=== PATIENT | male | born 1930 | race Caucasian/White ===

== ENCOUNTER 2018-02-20 12:27 | Inpatient (IN) | payer OTHER ==
[~2018-02-20] VITALS: Ht 162.6 cm; Wt 61.2 kg
--- NOTE | ~2018-02-20 | HC ---
[facility] [place] [address] CONSULTATION Name: LUIS KINSEY Room #: 352-P ADM IN M.R.#: [id number] Admission: 02/20/18 Attend Phys: Dilia Stacy Discharge: Date of : 31 Report #: [id number] THIS REPORT FOR: //name// CC: Celio Ralph DATE OF SERVICE: 02/21/2018 REFERRAL PHYSICIAN: Dr. Fajardo. REASON FOR REFERRAL: Acute on chronic respiratory failure, mucus plugging. HISTORY OF PRESENT ILLNESS: The patient is an 87-year-old male who was brought to the Emergency Room due to dyspnea. A chest x-ray shows atelectasis involving the right lower lobe. A pulmonary consultation was requested. The patient is known to this physician. He was recently hospitalized in 05/2017 for respiratory failure. He has a complicated medical history. The patient was diagnosed with Guillain-[place] syndrome in 02/2017. He had lived in [place]. He was hospitalized there and subsequently had a complicated hospital course requiring intubation and subsequently tracheostomy. He was then sent to rehabilitation. Most recently, he has been at [facility] for ongoing care. The patient was doing fairly well. In fact, he was successfully weaned off the mechanical ventilation, placed on a trach shield. He was doing well until a few days prior to presentation, he started to notice increasing dyspnea, secretion and need for suctioning. The patient underwent bronchoscopy while at [facility] prior to this. As mentioned above, chest x-ray shows moderate right lower lobe atelectasis. Currently, appears somewhat dyspneic, tachypneic. Otherwise, in mild distress. 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 difficile colitis. PAST SURGICAL HISTORY: Status post bilateral knee replacement. ALLERGIES: None. MEDICATIONS: List reviewed. This includes aspirin, famotidine, nebulized albuterol, MiraLax, nebulized ipratropium, insulin supplements, Lovenox. He is also on Coreg. [facility] [address] [place] [address] CONSULTATION Name: LUIS KINSEY Room #: 352-P ADM IN M.R.#: [id number] Admission: 02/20/18 Attend Phys: Dilia Stacy Discharge: Date of : 31 Report #: [id number] FAMILY HISTORY: Noncontributory. SOCIAL HISTORY: As mentioned above. Currently, had been at [facility] facility. The patient is retired. Has six children. He has never smoked. He drank rarely in the past. REVIEW OF SYSTEMS: As mentioned above. Notable for progressive weakness due to his Guillain-[place]amping [place]. Otherwise, 10-point systems negative. PHYSICAL EXAMINATION: GENERAL: He is awake, alert, appears mildly dyspneic. VITAL SIGNS: Temperature is 98.4 degrees Fahrenheit, pulse 85, respiratory rate is 20, blood pressure is 120/57 mmHg and saturation 96%. HEENT: Normocephalic, atraumatic. NECK: Status post tracheostomy. CHEST: Breath sounds are decreased in the right lung field, few scattered crackles in the left lung field. No wheezes. CARDIOVASCULAR: Normal S1, S2. There are no murmurs or gallop. There is no JVD. There is no carotid bruit. Pulses are 2+/4+ bilaterally. ABDOMEN: Soft, nontender, no organomegaly or masses felt. GENITOURINARY: Deferred. RECTAL: Deferred. EXTREMITIES: There is no edema, cyanosis or clubbing. MUSCULOSKELETAL: Notable for marked muscle atrophy involving both upper and lower extremities. LABORATORY DATA: Chest x-ray as mentioned above. Electrolytes: Sodium 132, potassium 4.1, chloride 92, CO2 is 35, BUN is 47, creatinine 0.9. WBC 8600, hemoglobin is 10.9, platelets are normal. IMPRESSION: 1. Right lower lobe atelectasis, likely due to mucus plugging. 2. Acute on chronic hypoxic respiratory failure with hypercapnia. 3. Guillain-[place] initially diagnosed in 2017 with progressive weakness, muscle atrophy, now with functional quadriplegia, status post tracheostomy, PEG tube. 4. Diabetes mellitus type 2. 5. Hypertension. 6. History of chronic kidney disease, the creatinine has improved. RECOMMENDATION: We will proceed with a diagnostic and therapeutic bronchoscopy later today. Wean O2 for saturation 90%. Bronchodilators will be recommended. DVT and GI prophylaxis will be addressed. I think broad-spectrum antibiotics may be indicated due to possibility of nosocomial infections. [facility] [address] [place] [address] CONSULTATION Name: LUIS KINSEY Room #: 352-P ADM IN M.R.#: [id number] Admission: 02/20/18 Attend Phys: Dilia Stacy Discharge: Date of : 31 Report #: [id number] Thank you for this consultation. <ELECTRONICALLY SIGNED> By: Heladio Queen MD 02/22/18 1935 1819 [id number] Heladio Queen MD /nt
--- NOTE | ~2018-02-20 | H ---
[facility] [place] [address] [place] [address] HISTORY AND PHYSICAL Name: LUIS KINSEY Room #: 355-P ADM IN M.R.#: [id number] Admission: 02/20/18 Attend Phys: Dilia Satcy Discharge: Date of : 31 Report #: [id number] THIS REPORT FOR: //name// CC: Celio Ralph DATE OF SERVICE: 02/20/2018 CHIEF COMPLAINT: Shortness of breath. 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 He has been chronically ventilated for over a year and had been living in the long-term care setting at [facility]. About a month ago, he was transferred up to the LTAC unit at [facility] and successfully weaned from the ventilator to trach shield. However, he is having difficulty clearing secretions and has had mucus plugging and the need for several bronchoscopies in the last few weeks since being converted to trach shield. He had evaluation yesterday and the facility felt he may have recurrent mucus plug and/or signs of pleural effusion and was admitted for pulmonary evaluation and possible therapeutic bronchoscopy. 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 He has been chronically ventilated for approximately a year, but recently weaned to trach shield. Diabetes type 2, hypertension. There is questionable history of DVT, I do not have any specific details. Chronic kidney disease, history of C. diff. PAST SURGICAL HISTORY: He has had bilateral knee replacements. FAMILY HISTORY: Noncontributory. SOCIAL HISTORY: Has been living in a long-term care setting for a year, no known chronic alcohol or tobacco use. ALLERGIES: None. MEDICATIONS: Aspirin, Pepcid, MiraLax, Atrovent, NovoLog, Lovenox. REVIEW OF SYSTEMS: He is alert. He nods yes or no, but really could not follow a review. OBJECTIVE: VITAL SIGNS: Temperature 36.4, pulse 84, respirations 16, blood pressure 103/57, O2 sat 100% on trach shield. GENERAL: As mentioned, he is awake and alert. [facility] [address] [place] [address] HISTORY AND PHYSICAL Name: LUIS KINSEY Room #: 355-P [facility] IN .R.#: [id number] Admission: 02/20/18 Attend Phys: Dilia Stacy Discharge: Date of : 31 Report #: [id number] HEAD AND NECK: Show a tracheostomy in place with trach shield. LUNGS: Clear anteriorly. HEART: Regular. ABDOMEN: Soft, normoactive bowel sounds, PEG tube. EXTREMITIES: No edema. NEUROLOGIC: Global strength 2/5 throughout. LABORATORY DATA: White count was 8.6. Chemistry is fairly unremarkable. Chest x-ray shows a right pleural effusion and basilar atelectasis. ASSESSMENT: 1. Chronic hypercapnic respiratory failure. 2. Guillain-Nevis syndrome. 3. Tracheostomy dependent. 4. Right pleural effusion. 5. Mucus plugs. 6. Diabetes type 2. 7. Anemia of chronic disease. 8. Quadriparesis. PLAN: Continue his usual medications and have Dr. Queen assess him for the need for therapeutic bronchoscopy and/or thoracentesis. <ELECTRONICALLY SIGNED> By: Ladarius Fajardo MD 02/22/18917 0930 1003 Ladarius Fajardo MD /nt
--- NOTE | ~2018-02-20 | O ---
[facility] [place] [address] OPERATIVE REPORT Name: LUIS KINSEY Room #: 352-P ADM IN M.R.#: [id number] Admission: 02/20/18 Attend Phys: Dilia Stacy Discharge: Date of : 31 Report #: [id number] THIS REPORT FOR: //name// CC: Celio Ralph DATE OF SERVICE: 02/21/2018 PROCEDURE: Diagnostic and therapeutic bronchoscopy. CLINICAL HISTORY: An 87-year-old male with [id number]-gw-ephkhtn respiratory failure, chest x-ray is showing right lower lobe atelectasis. Mucus plugging is suspected. PREOPERATIVE DIAGNOSIS: Mucus plugging involving the right main stem bronchus, part of the left lower lobe. POSTOPERATIVE DIAGNOSIS: Mucus plugging involving the right main stem bronchus, part of the left lower lobe. DESCRIPTION OF PROCEDURE: Following obtained consent, risks and benefits have been explained to the patient's family, which include infection, bleeding, pneumothorax, procedure performed in the patient's room. He was not given any sedation. The patient has a previously placed tracheostomy. 1% lidocaine was used for local anesthetic. Then, a flexible, disposable, fiberoptic bronchoscope was then introduced through the #8 Shiley tracheostomy. Distal trachea was unremarkable. Jessica was normal. The proximal right main stem bronchus was occluded with clear whitish secretions. Moderate mucus plugging was also noted in the right lower lobe. The right upper lobe and right middle lobe was grossly unremarkable. Left main stem bronchus was normal. Left upper lobe was normal. Part of the left lower lobe shows mild mucus plugging. Following suctioning and washing, the airways were examined. All airways appeared patent and open. Mucosa was normal. No endobronchial lesion seen. Secretions again were clear. The patient tolerated the procedure well with no complications. Bronchial wash will be sent for microbiology studies including Gram stain, culture sensitivity, fungal smear and culture and AFB smear. <ELECTRONICALLY SIGNED> By: Heladio Queen MD 02/22/18 1935 1825 1843 Heladio Queen MD /nt
--- NOTE | ~2018-02-20 | D ---
[facility] [place] [address] [place] [address] DISCHARGE SUMMARY Name: LUIS KINSEY Room #: 352-P [facility] IN M.R.#: [id number] Admission: 02/20/18 Attend Phys: Dilia Stacy Discharge: 03/03/18 Date of : 31 Report #: [id number] THIS REPORT FOR: //name// CC: Celio Ralph FINAL DIAGNOSES: 1. Healthcare-associated pneumonia of the right lower lobe. 2. Pseudomonas aeruginosa pulmonary infection. 3. Mucus plugging of the right lower lobe. 4. Right pneumothorax. 5. Chronic hypoxic hypercapnic respiratory failure. 6. Guillain-[place] syndrome. 7. Quadriparesis. 8. Diabetes type 2. 9. Anemia of chronic disease. PROCEDURES: 1. Bronchoscopy. 2. Chest tube placement on the right. 3. Mechanical ventilation. HOSPITAL COURSE: The patient was admitted from a fpc unit with respiratory issues with thick mucus, some mild hypoxia and respiratory failure. He was seen by the Pulmonary service and plan for bronchoscopy. He had thick mucus and secretions suctioned from the right lower lobe due to mucous plugging. Cultures were obtained, which eventually grew Pseudomonas and beta strep group G. ID service followed him and placed him on appropriate antibiotics. Because of the pulmonary findings in the right lower lobe, Dr. Queen placed him back on mechanical ventilation in hopes of positive pressure ventilation with atelectasis and the mucus plugging in the right lower lobe. Unfortunately, he developed a pneumothorax to the right upper lobe and IR placed a chest tube. He remained on the ventilator the rest of his hospital stay with other supportive measures including his usual medicine, tube feeding and antibiotics. Ultimately, the air leak resolved and the pneumothorax resolved. Chest tube was removed and the following morning of the day of discharge, chest x-ray showed reinflation of the right upper lobe with no recurrent pneumothorax. DISPOSITION: He is being transferred to [facility] facility under the care of Dr. Ralph for continued IV antibiotics, respiratory treatment and ventilator weaning. I have signed his transfer medications orders and our service will follow him there. By: 1551 1851 Ladarius Fajardo MD /nt
[2018-02-20 12:27] VITALS: BP 127/71
[~2018-02-20 12:27] MED LIST: ACETAMINOPHEN325 M1 PO; ALBUTEROL2.5 MG/0.5 INH; ALBUTEROL2.5 MG/31 INH; ARTIFICIAL TEAR15 M1 OPHTHALMIC; CARVEDILOL3.125 MG PO; CELEXA10 MG PO; CHILDREN'S ASPI81 MG PO; DESENEX TOP; ENOXAPARIN40 MG/0.1 SUBQ; FAMOTIDINE 20 M20 MG PO; FLAGYL500 MG PO; LEVEMIR SUBQ; MELATONIN3 MG PO; MIRALAX17 GM PO; NEURONTIN250 MG/5 M PER TUBE; NITROGLYCERIN0.4 MG SUBLING; NOVOLOG100 UNIT/1 SUBQ; ONDANSETRON ODT4 MG PO; OXYCONTIN10 M1 PO; REGLAN 10 MG TA10 MG PO; SALINE MIST44 ML NASAL; SENNA8.6 MG PO; VITAMIN D2000 UNIT PO
[2018-02-20] MEDS ORDERED: IPRATROPIU0.2 MG/1 M INH (12:36)
[2018-02-20] MEDS ORDERED: ENOXAPARIN100 MG/11 SUBQ (12:37)
[2018-02-20] MEDS ORDERED: NOVOLOG100 UNIT/1 SUBQ (12:37)
[2018-02-20 12:57] LABS: HEMATOCRIT 31.6 % (42.0-52.0); HEMOGLOBIN 10.9 gm/dL (14.0-18.0); MCH 29.7 pg (26.0-34.0); MCHC 34.4 g/dL (28.0-37.0); MCV 86.4 fL (80.0-100.0); PLATELET COUNT 221 thou/uL (150-400); RBC 3.66 mil/uL (4.50-6.00); RDW 15.7 % (10.5-14.5); WBC 8.6 thou/uL (4.0-11.0)
[2018-02-20 13:02] LABS: CALCIUM 9.8 mg/dL (8.5-10.1); CREATININE 0.9 mg/dL (0.7-1.3); POTASSIUM 4.1 mmol/L (3.5-5.1)
[2018-02-20 13:09] LABS: APTT 30.6 Seconds (24.5-32.8); PROTIME 10.4 Seconds (9.3-11.4)
[2018-02-20 13:18] LABS: ABSOLUTE NEUTROPHILS 5.7 thou/uL (1.4-8.2); PLATELET ESTIMATE NORMAL
[2018-02-20 15:57] VITALS: BP 118/61
[2018-02-20 16:23] VITALS: BP 108/62
[2018-02-20 17:45] VITALS: BP 111/70
[2018-02-20 20:27] VITALS: BP 133/78
[2018-02-21] VITALS (7 sets, daily range): BP systolic 97–129; BP diastolic 55–63
[2018-02-22 03:59] VITALS: BP 140/72
[2018-02-22 05:52] LABS: HEMATOCRIT 32.5 % (42.0-52.0); HEMOGLOBIN 10.9 gm/dL (14.0-18.0); MCHC 33.5 g/dL (28.0-37.0); MCV 86.8 fL (80.0-100.0); RBC 3.74 mil/uL (4.50-6.00); RDW 15.7 % (10.5-14.5); WBC 5.6 thou/uL (4.0-11.0)
[2018-02-22 06:07] LABS: CALCIUM 9.6 mg/dL (8.5-10.1); CREATININE 0.8 mg/dL (0.7-1.3); POTASSIUM 3.7 mmol/L (3.5-5.1)
[2018-02-22 08:05] VITALS: BP 134/61
[2018-02-22 11:50] VITALS: BP 120/59
[2018-02-22 16:07] LABS: BE(vivo) 5.3 mmol/L (-2 to +3); HCO3 29.5 mmol/L (22.0-26.0); PCO2 41.8 mmHg (35.0-45.0); PO2 75.6 mmHg (80.0-100.0); pH 7.466 (7.360-7.450); sO2 95.8 % (92.0-98.0)
[2018-02-22 16:43] VITALS: BP 110/65
[2018-02-22 19:25] VITALS: BP 122/60
[2018-02-23] VITALS (7 sets, daily range): BP systolic 89–130; BP diastolic 47–68
[2018-02-23 05:23] LABS: HEMATOCRIT 30.4 % (42.0-52.0); HEMOGLOBIN 10.3 gm/dL (14.0-18.0); MCH 29.2 pg (26.0-34.0); MCHC 33.8 g/dL (28.0-37.0); MCV 86.2 fL (80.0-100.0); RBC 3.53 mil/uL (4.50-6.00); RDW 16.2 % (10.5-14.5); WBC 9.3 thou/uL (4.0-11.0)
[2018-02-23 05:36] LABS: CALCIUM 9.5 mg/dL (8.5-10.1); CREATININE 0.8 mg/dL (0.7-1.3); POTASSIUM 3.8 mmol/L (3.5-5.1)
[2018-02-24 02:56] VITALS: BP 114/68
[2018-02-24 05:53] LABS: HEMATOCRIT 27.6 % (42.0-52.0); HEMOGLOBIN 9.3 gm/dL (14.0-18.0); MCH 28.9 pg (26.0-34.0); MCHC 33.6 g/dL (28.0-37.0); MCV 85.9 fL (80.0-100.0); RBC 3.21 mil/uL (4.50-6.00); RDW 16.7 % (10.5-14.5); WBC 5.5 thou/uL (4.0-11.0)
[2018-02-24 06:04] LABS: CALCIUM 9.1 mg/dL (8.5-10.1); POTASSIUM 4.2 mmol/L (3.5-5.1)
[2018-02-24 07:52] VITALS: BP 104/69
[2018-02-24 11:14] VITALS: BP 108/57
[2018-02-24 18:05] VITALS: BP 119/64
[2018-02-24 19:55] VITALS: BP 107/56
[2018-02-25 00:35] VITALS: BP 119/58
[2018-02-25 03:15] VITALS: BP 121/64
[2018-02-25 07:47] VITALS: BP 127/69
[2018-02-25 11:23] VITALS: BP 139/96
[2018-02-25 15:33] LABS: HEMATOCRIT 28.4 % (42.0-52.0); HEMOGLOBIN 9.7 gm/dL (14.0-18.0); MCH 29.6 pg (26.0-34.0); MCHC 34.2 g/dL (28.0-37.0); MCV 86.5 fL (80.0-100.0); RBC 3.29 mil/uL (4.50-6.00); RDW 16.5 % (10.5-14.5); WBC 13.1 thou/uL (4.0-11.0)
[2018-02-25 16:32] VITALS: BP 139/77
[2018-02-25 19:52] VITALS: BP 112/66
[2018-02-26 03:54] VITALS: BP 114/51
[2018-02-26 06:49] LABS: ABSOLUTE NEUTROPHILS 5.4 thou/uL (1.4-8.2); BASOPHILS 0.2 % (0.0-2.0); EOSINOPHILS 2.6 % (0.0-3.0); HEMATOCRIT 25.1 % (42.0-52.0); HEMOGLOBIN 8.7 gm/dL (14.0-18.0); LYMPHOCYTES 11.7 % (24.0-44.0); MCHC 34.5 g/dL (28.0-37.0); PLATELET COUNT 181 thou/uL (150-400); POLYS 75.5 % (36.0-66.0); RBC 2.89 mil/uL (4.50-6.00); RDW 16.4 % (10.5-14.5); WBC 7.2 thou/uL (4.0-11.0)
[2018-02-26 06:57] LABS: CREATININE 1.1 mg/dL (0.7-1.3); POTASSIUM 3.9 mmol/L (3.5-5.1)
[2018-02-26 08:07] VITALS: BP 100/51
[2018-02-26 11:09] VITALS: BP 101/51
[2018-02-26 16:03] VITALS: BP 113/55
[2018-02-26 19:44] VITALS: BP 121/57
[2018-02-27 03:10] VITALS: BP 125/63
[2018-02-27 08:00] VITALS: BP 103/50
[2018-02-27 11:17] VITALS: BP 110/46
[2018-02-27 15:58] VITALS: BP 116/60
[2018-02-27 19:30] VITALS: BP 113/51
[2018-02-28 04:10] VITALS: BP 110/54
[2018-02-28 08:27] VITALS: BP 136/68
[2018-02-28 12:11] VITALS: BP 101/46
[2018-02-28 15:22] VITALS: BP 109/49
[2018-02-28 20:15] VITALS: BP 117/50
[2018-03-01 03:45] VITALS: BP 120/53
[2018-03-01 05:51] LABS: CALCIUM 9.2 mg/dL (8.5-10.1); POTASSIUM 3.6 mmol/L (3.5-5.1)
[2018-03-01 05:55] LABS: HEMATOCRIT 25.8 % (42.0-52.0); HEMOGLOBIN 8.7 gm/dL (14.0-18.0); MCH 29.5 pg (26.0-34.0); MCHC 33.6 g/dL (28.0-37.0); MCV 87.7 fL (80.0-100.0); RBC 2.94 mil/uL (4.50-6.00); RDW 15.9 % (10.5-14.5); WBC 4.4 thou/uL (4.0-11.0)
[2018-03-01 08:17] VITALS: BP 130/61
[2018-03-01 11:49] VITALS: BP 134/56
[2018-03-01 19:20] VITALS: BP 126/65
[2018-03-02 03:24] VITALS: BP 113/60
[2018-03-02 08:00] VITALS: BP 118/54
[2018-03-02 12:34] VITALS: BP 171/83
[2018-03-02 15:40] VITALS: BP 133/69
[2018-03-02 20:00] VITALS: BP 113/58
[2018-03-03 06:00] VITALS: BP 139/51
[2018-03-03 06:10] LABS: HEMOGLOBIN 7.8 gm/dL (14.0-18.0); MCH 29.7 pg (26.0-34.0); MCHC 33.9 g/dL (28.0-37.0); MCV 87.4 fL (80.0-100.0); RBC 2.63 mil/uL (4.50-6.00); RDW 15.9 % (10.5-14.5); WBC 4.7 thou/uL (4.0-11.0)
[2018-03-03 06:23] LABS: CALCIUM 9.5 mg/dL (8.5-10.1); CREATININE 0.8 mg/dL (0.7-1.3); POTASSIUM 3.8 mmol/L (3.5-5.1)
[2018-03-03 08:03] VITALS: BP 121/43
[2018-03-03 10:53] VITALS: BP 115/39
[2018-03-03] MEDS ORDERED: IPRAT-ALBUT 0.5-3 ML INH (11:26)
[2018-03-03] MEDS ORDERED: MEROPENEM500 MG IV (11:26)
[2018-03-03] MEDS ORDERED: ACETYLCYST200 MG/1 M INH (11:27)
[2018-03-03] MEDS ORDERED: ONDANSETRON HCL4 M1 IV PUSH (11:27)
[2018-03-03] MEDS ORDERED: ACETAMINOPHEN325 M1 PO (11:27)
== END 2018-03-03 18:44 | DRG 207 ==
LOC: ER 12:27 → 3W 14:09 → EROBS 14:09 → 3W 17:30
PROVIDERS: Internal Medicine; Internal Medicine Geriatric Medicine; Internal Medicine Infectious Disease; Internal Medicine Pulmonary Disease; Student in an Organized Health Care Education/Training Program
PROC: 0BC68ZZ Extirpation of Matter from Right Lower Lobe Bronchus, Via Natural or Artificial Opening Endoscopic (ICD-10-PCS; principal; 2018-02-21)
PROC: 0BCB8ZZ Extirpation of Matter from Left Lower Lobe Bronchus, Via Natural or Artificial Opening Endoscopic (ICD-10-PCS; principal; 2018-02-21)
PROC: 0BC38ZZ Extirpation of Matter from Right Main Bronchus, Via Natural or Artificial Opening Endoscopic (ICD-10-PCS; principal; 2018-02-21)
PROC: 5A1955Z Respiratory Ventilation, Greater than 96 Consecutive Hours (ICD-10-PCS; 2018-02-22)
PROC: 0W9930Z Drainage of Right Pleural Cavity with Drainage Device, Percutaneous Approach (ICD-10-PCS; 2018-02-23)
PROC: 0W29X0Z Change Drainage Device in Right Pleural Cavity, External Approach (ICD-10-PCS; 2018-02-24)
DX: J96.21 Acute and chronic respiratory failure with hypoxia (principal); G82.50 Quadriplegia, unspecified; J15.1 Pneumonia due to Pseudomonas; J15.4 Pneumonia due to other streptococci; J98.11 Atelectasis; G61.0 Guillain-Barre syndrome; T17.590A Other foreign object in bronchus causing asphyxiation, initial encounter; J90 Pleural effusion, not elsewhere classified; J93.83 Other pneumothorax; J96.22 Acute and chronic respiratory failure with hypercapnia; N18.9 Chronic kidney disease, unspecified; Z96.653 Presence of artificial knee joint, bilateral; I12.9 Hypertensive chronic kidney disease with stage 1 through stage 4 chronic kidney disease, or unspecified chronic kidney disease; E11.22 Type 2 diabetes mellitus with diabetic chronic kidney disease; D63.8 Anemia in other chronic diseases classified elsewhere; X58.XXXA Exposure to other specified factors, initial encounter; Y93.89 Activity, other specified; Y92.89 Other specified places as the place of occurrence of the external cause; Y99.8 Other external cause status; Z93.0 Tracheostomy status; Z86.718 Personal history of other venous thrombosis and embolism; Z79.4 Long term (current) use of insulin; Z79.82 Long term (current) use of aspirin; Z79.899 Other long term (current) drug therapy
CPT/HCPCS: 10879

== ENCOUNTER 2018-05-12 16:24 | Emergency (ER) | payer OTHER ==
[~2018-05-12] VITALS: Ht 160 cm; Wt 57.6 kg
[~2018-05-12 16:24] MED LIST changes: +ACETYLCYST200 MG/1 M INH; +ENOXAPARIN100 MG/11 SUBQ; +IPRAT-ALBUT 0.5-3 ML INH; +IPRATROPIU0.2 MG/1 M INH; +MEROPENEM500 MG IV; +ONDANSETRON HCL4 M1 IV PUSH
[2018-05-12 17:05] LABS: HEMATOCRIT 27.9 % (42.0-52.0); HEMOGLOBIN 9.5 gm/dL (14.0-18.0); MCH 29.7 pg (26.0-34.0); MCHC 34.1 g/dL (28.0-37.0); PLATELET COUNT 153 thou/uL (150-400); RBC 3.21 mil/uL (4.50-6.00); RDW 14.6 % (10.5-14.5); WBC 6.8 thou/uL (4.0-11.0)
[2018-05-12 17:21] LABS: APTT 32.7 Seconds (24.5-32.8); PROTIME 10.7 Seconds (9.3-11.4)
[2018-05-12 17:27] LABS: CALCIUM 9.8 mg/dL (8.5-10.1); CREATININE 1.2 mg/dL (0.7-1.3)
[2018-05-12 17:36] LABS: ABSOLUTE NEUTROPHILS 4.6 thou/uL (1.4-8.2); POLYCHROMASIA 1+
[2018-05-12 20:18] VITALS: BP 110/90
== END 2018-05-12 20:21 | disposition home or self-care (01) ==
LOC: ER 16:24
PROVIDERS: Emergency Medicine
DX: R31.9 Hematuria, unspecified (principal); N36.8 Other specified disorders of urethra; J98.11 Atelectasis; N13.30 Unspecified hydronephrosis; I10 Essential (primary) hypertension; K56.41 Fecal impaction; E11.9 Type 2 diabetes mellitus without complications; Z99.11 Dependence on respirator [ventilator] status; Z86.718 Personal history of other venous thrombosis and embolism; Z96.653 Presence of artificial knee joint, bilateral; Z79.4 Long term (current) use of insulin
CPT/HCPCS: 50454

== ENCOUNTER 2018-09-18 16:49 | Inpatient (IN) | payer OTHER ==
[~2018-09-18] VITALS: Ht 160 cm; Wt 71.0 kg
--- NOTE | ~2018-09-18 | HC ---
[facility] [place] [address] CONSULTATION Name: LUIS KINSEY Room #: 352-P ADM IN M.R.#: [id number] Admission: 09/18/18 ������������������ Attend Phys: Ladarius Fajardo MD Discharge: ������������������ Date of : 31 Report #: [id number] THIS REPORT FOR: //name// CC: Celio Fajardo DATE OF SERVICE: 09/19/2018 TYPE OF REPORT: Pulmonary consultation. REFERRING PHYSICIAN: Ladarius Fajardo M.D. REASON FOR REFERRAL: Reevaluation of chronic respiratory failure. HISTORY OF PRESENT ILLNESS: The patient is an 88-year-old male who was admitted for reevaluation of his chronic respiratory failure and neurologic status. A Pulmonary consultation was requested. The patient is known to this Pulmonary Service. He was last hospitalized in February 2018. He has a history of progressive muscle weakness related to Guillain-[place] syndrome. As a result, he has developed chronic respiratory failure necessitating a tracheostomy. Weaning trial in the past has failed with recurrent respiratory failure necessitating mechanical ventilation. Since the last hospitalization in February, the patient has been on mechanical ventilation. Currently, he is about the same. He is awake. He has no complaints. Of note, he has had trouble with mucus plugging in the past. PAST MEDICAL HISTORY: Notable for Guillain-[place] syndrome diagnosed in February 2017. He has been evaluated by neurologist in the past with progressive weakness, developed chronic respiratory failure necessitating chronic tracheostomy and a mechanical ventilation. He has a history of diabetes mellitus type 2, hypertension, chronic kidney disease, questionable history of DVT and history of C. difficile colitis. PAST SURGICAL HISTORY: As mentioned above including tracheostomy, PEG tube placement and bilateral knee replacement. ALLERGIES: None noted. HOME MEDICATIONS: List is reviewed. FAMILY HISTORY: Noncontributory. SOCIAL HISTORY: He has a very supportive family, has never smoked or drank [facility] [address] [place] [address] CONSULTATION Name: LUIS KINSEY Room #: 352-P ADM IN .R.#: [id number] Admission: 09/18/18 ������������������ Attend Phys: Ladarius Fajardo MD Discharge: ������������������ Date of : 31 Report #: [id number] alcohol in the past. REVIEW OF SYSTEMS: Deferred as the patient is on chronic trach. PHYSICAL EXAMINATION: GENERAL: He is awake, alert, in no distress. VITAL SIGNS: Temperature is 99.0 degrees Fahrenheit, pulse is 70, respiratory rate is 20, blood pressure 127/48 mmHg and saturation 97%. HEENT: Normocephalic and atraumatic. NECK: Supple without any lymphadenopathy or thyromegaly status post tracheostomy. CHEST: Breath sounds are fair. Few scattered crackles in the bases. No wheezes. CARDIOVASCULAR: Normal S1 and S2. There is no murmur or gallop. There is no JVD. There is no carotid bruit. Pulses are 2+/4+ bilaterally. ABDOMEN: Soft and nontender. No organomegaly or masses felt. Positive for PEG tube placement. GENITOURINARY: Deferred. RECTAL: Deferred. EXTREMITIES: No edema, cyanosis or clubbing. NEUROLOGICAL: Normal for moderate muscle atrophy in both upper and lower extremities. RADIOLOGICAL DATA: Chest x-ray shows small lung volumes, left lower lobe atelectasis, possible infiltrates. LABORATORY DATA: Electrolytes unremarkable. WBC 7800, hemoglobin 8.8 and platelets are normal. Arterial blood gas revealed pH 7.43, pCO2 of 43 and pO2 166 on FiO2 of 50%. IMPRESSION: 1. Chronic respiratory failure due to progressive debility and muscle weakness due to Guillain-[place]. Gas exchange is stable. Chest x-ray suggests possible left lower lobe atelectasis. The patient has a history of mucus plugging in the past. 2. Peyrr-ep-gydwmnf hypoxic respiratory failure. 3. Guillain-[place] with progressive debility and muscle weakness with marked progressive muscle atrophy. 4. Status post percutaneous endoscopic gastrostomy tube placement, status post trach with functional quadriplegia. 5. Diabetes mellitus type 2. 6. Hypertension. 7. Chronic kidney disease. 8. Medical directive. Family still desires aggressive care. RECOMMENDATION AND DISCUSSION: The patient is fairly stable from Pulmonary [address] [address] CONSULTATION Name: LUIS KINSEY Room #: 352-P [facility] IN M.R.#: [id number] Admission: 09/18/18 ������������������ Attend Phys: Ladarius Fajardo MD Discharge: ������������������ Date of : 31 Report #: [id number] standpoint. Given his history of mucus plugging, I think it is reasonable to proceed with a diagnostic bronchoscopy for further assessment. In regards to possible weaning from mechanical ventilation, I was strongly discouraged this in this patient as he has progressive muscle weakness related to Guillain-[place]. He has high risk for having recurrent respiratory failure along with complications including atelectasis, infectious process, etc. This was discussed in detail with the patient's son who voices understanding. DVT and GI prophylaxis recommended. Continue nutritional support. Thank you for this consultation. ��������������������������������������������� ���������������������������������������� By: ��������������������������������������������� 02 0319 Heladio Queen MD /nt
--- NOTE | ~2018-09-18 | O ---
[facility] [place] [address] OPERATIVE REPORT Name: LUIS KINSEY Room #: 352-P ADM IN M.R.#: [id number] Admission: 09/18/18 ������������������ Attend Phys: Ladarius Fajardo MD Discharge: ������������������ Date of : 31 Report #: [id number] THIS REPORT FOR: //name// CC: Celio Fajardo PROCEDURE: Diagnostic bronchoscopy. CLINICAL HISTORY: An 88-year-old male with chronic respiratory failure, along with Guillain-[place] syndrome. Diagnostic bronchoscopy was performed to assess for possible recurrent mucus plugging. POSTOPERATIVE DIAGNOSES: 1. Mucus plugging, right mainstem bronchus, right lower lobe. Secretions were mildly purulent. 2. No evidence of endobronchial lesion. DESCRIPTION OF PROCEDURE: Following obtained consent and risks and benefits being explained to the patient, which include infection, bleeding, pneumothorax, procedure performed in the patient's room. The patient did not receive any sedation. He has a chronic tracheostomy. Through the previously placed trachea, a flexible fiberoptic bronchoscope was introduced without difficulty. The distal trachea was normal, Jessica was normal. Left main stem bronchus, left upper lobe was normal. Right mainstem bronchus showed moderate amount of thick tinged-yellow secretion seen. Following suctioning, the rest of the right lung field was examined. The right upper lobe was normal. Right middle lobe was normal. The right lower lobe shows moderate amount of mucous secretions. Bronchial wash was performed in the right lower lobe. Otherwise, the patient tolerated the procedure well. Vital signs and saturation throughout the study were within the normal range. Bronchial wash will be sent for microbiology studies including AFB smear, fungal smear, culture and sensitivity. ��������������������������������������������� ���������������������������������������� By: ��������������������������������������������� 2122 0038 Heladio Queen MD /nt
[2018-09-18 18:00] VITALS: BP 150/66
[2018-09-18] MEDS ORDERED: CARVEDILOL3.125 MG PO (18:30)
[2018-09-18] MEDS ORDERED: SCOPOLAMINE1 EACH TRANSDERM (18:32)
[2018-09-18] MEDS ORDERED: TYLENOL325 MG PO (18:35)
[2018-09-18] MEDS ORDERED: IPRAT-ALBUT 0.5-3 ML (18:35)
[2018-09-18 19:28] LABS: HEMATOCRIT 26.3 % (42.0-52.0); HEMOGLOBIN 8.8 gm/dL (14.0-18.0); MCH 28.9 pg (26.0-34.0); MCHC 33.7 g/dL (28.0-37.0); MCV 85.8 fL (80.0-100.0); RBC 3.06 mil/uL (4.50-6.00); RDW 15.1 % (10.5-14.5); WBC 7.8 thou/uL (4.0-11.0)
[2018-09-18 19:35] LABS: CREATININE 0.7 mg/dL (0.7-1.3); POTASSIUM 4.1 mmol/L (3.5-5.1)
[2018-09-18 20:33] LABS: BE(vivo) 4.2 mmol/L (-2 to +3); HCO3 28.9 mmol/L (22.0-26.0); PCO2 43.7 mmHg (35.0-45.0); PO2 166.8 mmHg (80.0-100.0); pH 7.438 (7.360-7.450); sO2 99.2 % (92.0-98.0)
[2018-09-18 21:52] VITALS: BP 142/51
--- NOTE | 2018-09-19 03:15 | NUR ---
Admission assessments completed. Careplan initiated. Oxygenation optimal with current vent settings, patient requiring frequent suctioning to clear mucus plugs. Sats quickly increases to 100 % after suctioning. Vital signs and rhythm stable. Tube feeding started.
[2018-09-19 03:39] VITALS: BP 115/41
[2018-09-19 08:20] VITALS: BP 134/52
--- NOTE | 2018-09-19 09:32 | H ---
[facility] [place] [address] [address] HISTORY AND PHYSICAL Name: LUIS KINSEY Room #: 352-P ADM IN M.R.#: [id number] Admission: 09/18/18 ������������������ Attend Phys: Ladarius Fajardo MD Discharge: ������������������ Date of : 31 Report #: [id number] THIS REPORT FOR: //name// CC: Celio Fajardo DATE OF SERVICE: 09/18/2018 CHIEF COMPLAINT: Weakness. HISTORY OF PRESENT ILLNESS: The patient is an 88-year-old gentleman from [facility] who was admitted for evaluation of his chronic respiratory failure and a history of Guillain-[place] syndrome. His history was about 2 years ago at some point, he was diagnosed with Guillain-[place] syndrome that progressed to the point of respiratory failure requiring intubation, mechanical ventilation and subsequently placement of a tracheostomy tube and PEG tube. Since that time, he has been ventilator dependent. He has been at [facility] facility multiple times for attempted vent weaning. He has been in and out of [place] multiple times for pulmonary assessment, bronchoscopies and treatment for pneumonia along with vent weaning, all of which he has failed. At one point briefly, he was on a trach shield, but failed that with respiratory failure and I believe hypercapnia. This required his reattachment to the ventilator where he has been now in the long-term care setting for 6 months or longer. I believe at the outset of his illness, he received treatment for Guillain-[place] syndrome, but no improvement. Those details and specifics are unknown as he was treated at another facility. His family has requested again a second opinion in regards to his status as to why he cannot wean from the ventilator. PAST MEDICAL HISTORY: Guillain-[place] syndrome, chronic hypercapnic-hypoxic respiratory failure. As mentioned, he has failed ventilator weaning and trach shield trials in the past. He has had multiple admissions for healthcare-related pneumonia. He has a history of diabetes type 2, hypertension. X-rays reveal bilateral rotator cuff syndrome. PAST SURGICAL HISTORY: Unknown. FAMILY HISTORY: Unknown. SOCIAL HISTORY: He is . He has extensive family. They are mainly Bengali speaking. He was living in [facility] before this illness: Unknown history of alcohol or tobacco use. ALLERGIES: None. MEDICATIONS: Insulin, Pepcid, Tylenol. [facility] [address] [place] [address] HISTORY AND PHYSICAL Name: LUIS KINSEY Room #: 352-P [facility] IN M.R.#: [id number] Admission: 09/18/18 ������������������ Attend Phys: Ladarius Fajardo MD Discharge: ������������������ Date of : 31 Report #: [id number] REVIEW OF SYSTEMS: He is unable to give review. OBJECTIVE: VITAL SIGNS: Temperature 37.6, pulse 89, respirations 16, blood pressure 150/66, O2 sat 100% on the ventilator. GENERAL: He is awake and alert, lying in bed. He uses the suction tube. HEAD AND NECK: Unremarkable. LUNGS: Clear anteriorly. HEART: Regular. ABDOMEN: Soft, normoactive bowel sounds. EXTREMITIES: No edema. NEUROLOGIC: Global strength is about 3/5 throughout. ABG, lab and x-ray all reviewed. ASSESSMENT: 1. Chronic hypoxic-hypercapnic respiratory failure. 2. Ventilator dependence. 3. Possible mucus plug. 4. History of Guillain-[place] syndrome. 5. Severe deconditioning. 6. 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 7. Diabetes type 2. 8. Anemia of chronic disease. PLAN: For now, continue his usual home medications, Lovenox DVT prophylaxis. I will ask the Pulmonary and Neurology services to reassess him and offer a second opinion again in regards to his overall condition; however, since our service has known him for quite some time and he has been in and out of the hospital along with the LTAC and failed all usual treatment for respiratory failure, it appears that this is a terminal situation where he is ventilator dependent. I doubt that there is anything that could be done from a medical or intervention standpoint to improve his overall status. We will see if we can get the family to understand this once we will get final opinions. ��������������������������������������������� <ELECTRONICALLY SIGNED> ���������������������������������������� By: Ladarius Fajardo MD ��������������������������������������������� 09/19/1832 43 09 Ladarius Fajardo MD /nt
[2018-09-19 12:15] VITALS: BP 121/64
--- NOTE | 2018-09-19 12:47 | NUR ---
Assumed care of patient at 0700. Vitals have been stable. Maintaining oxygen saturations on current vent settings. Patient will drop his O2 sats when needing to be suctioned; down to low 90s. Lots of thick mucous secretions. Tolerates suctioning well and then O2 back into high 90s and 100%. Alert and oriented. Can follow commands. Has some use / coordination of upper extremities and can move lower extremities. Overall weak. Tube feeding infusing per orders and tolerating well. Incontinent of bowel. Cleaned as needed and frequent barrier cream. Repositioning every 2 hours. HOB > 30 degrees. Bilateral SCDs in place. Fang to DD. Son at bedside who helps translate for patient and communicate needs. Awaiting neurology for second opinion regarding Guillain-[place]. Slowly progressing towards POC. Will continue to monitor.
--- NOTE | 2018-09-19 15:17 | NUR ---
INITIAL ASSESSMENT: Received consult. SW reviewed chart and spoke with nursing. Pt was admitted from [facility] due to respiratory failure. 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 Pt has trach and peg tube in place. Pt has been to [facility] several times for vent weaning. Pt has been unable to successfully vent wean. Pulmonary and Neuro consults ordered. SW met with pt and son at bedside. Introduced role of SW. Pt is alert and able to communicate by nodding. Pt's son confirmed that plan is for pt to return to [facility] when discharged. Pt has been at [facility] for about 18 months. Pt is originally from [facility]. Pt's family is supportive and involved in pt's care. SW updated [facility] liaison. SW is following to assist as needed with discharge planning.
[2018-09-19 15:37] VITALS: BP 136/58
[2018-09-19 16:47] LABS: TSH 1.697 uIU/mL (0.358-3.740)
[2018-09-19 17:47] LABS: FOLIC ACID 41.6 ng/mL (8.6-58.9)
[2018-09-19 18:11] LABS: APTT 36.4 Seconds (24.5-32.8); PROTIME 10.9 Seconds (9.3-11.4)
[2018-09-19 19:40] VITALS: BP 127/48
[2018-09-20 03:25] VITALS: BP 123/51
[2018-09-20 05:48] LABS: HEMATOCRIT 26.1 % (42.0-52.0); HEMOGLOBIN 8.7 gm/dL (14.0-18.0); MCH 28.6 pg (26.0-34.0); MCHC 33.2 g/dL (28.0-37.0); MCV 86.1 fL (80.0-100.0); RBC 3.03 mil/uL (4.50-6.00); WBC 6.2 thou/uL (4.0-11.0)
--- NOTE | 2018-09-20 05:53 | NUR ---
Patient remains on ventilator with trach. 02 sats in the high 90's. Patient suctioned multiple times for airway clearance with dark yellow/ light brown secretions. Patient able to suction self with yankauer as needed. Patient turned Q2H, and cleaned up after a BM to maintain good skin integrity and prevent sores. Patient moves all extremities, but is very weak. Family witnessed massaging legs, and doing range of motion once during shift. Patient made NPO at midnight with tube feed off, and Q4H flushes on hold due to bronchoscopy procedure scheduled for today. Patient making progress toward plan of care goals at this time.
[2018-09-20 05:57] LABS: CALCIUM 8.9 mg/dL (8.5-10.1); CREATININE 0.8 mg/dL (0.7-1.3); POTASSIUM 4.1 mmol/L (3.5-5.1)
[2018-09-20 08:28] VITALS: BP 112/34
--- NOTE | 2018-09-20 11:34 | NUR ---
Assumed care of patient at 0700. Vitals have been stable. Patient remains alert and oriented, able to communicate needs through hand motions and communication with family. Son at bedside who helps translate, when needed. No complaints of pain. Maintaining oxygen saturations on current vent settings; still requiring suctions for thick secretions. Frequent repositioning in bed and barrier cream applied as needed. Leoncio poe DD. Oral care provided and instructed son on use at bedside, as well. Plan for bronchoscopy today. Tube feeding on hold until after procedure. Slowly progressing towards POC. Will continue to monitor.
[2018-09-20 12:18] VITALS: BP 114/36
[2018-09-20 12:20] VITALS: BP 114/36
[2018-09-20 15:57] VITALS: BP 115/40
--- NOTE | 2018-09-20 16:27 | NUR ---
SW reviewed chart and spoke with nursing. Pt had bronchoscopy earlier today. Plan is for pt to discharge back to [facility] (termite treater care chronic vent unit) tomorrow. KERI updated [facility] liaison, who confirmed they are able to accept pt. KERI is following to assist as needed with discharge planning.
[2018-09-20 19:25] VITALS: BP 128/42
[2018-09-21 03:35] VITALS: BP 133/50
--- NOTE | 2018-09-21 04:30 | NUR ---
Patient FiO2 decreased from 40% to 35% mid shift by RT. Patient tolerating well with sats in the high 90's. Patient breath sounds are coarse with rhonchi. Patient reaches out when he feels he needs suctioned. Patient turned Q2H with movement of extremities completed as tolerated. Adequate nutrition supplied via PEG tube with Glucerna 1.2 at goal rate of 65 mls/hr. Bed alarm on for patient safety. Patient making progress toward plan of care progress to go back to [facility] care facility.
[2018-09-21 08:04] VITALS: BP 118/52
[2018-09-21] MEDS ORDERED: GUAIFENESIN DM S5 ML PER TUBE (10:09)
[2018-09-21] MEDS ORDERED: ACETYLCYST200 MG/1 M INH (10:10)
[2018-09-21] MEDS ORDERED: NOVOLOG100 UNIT/1 SUBQ (10:10)
[2018-09-21 11:31] VITALS: BP 123/57
--- NOTE | 2018-09-21 11:41 | NUR ---
DISCHARGE ORDERS RECEIVED. PATIENT DISCHARGING BACK TO [facility] UNIT. CHART COPIED PER ETHNOARCHAEOLOGY PROFESSOR. ORDERS FAXED TO [facility], VERIFIED RECEIVED. [facility] TO TRANSPORT PATIENT, 1400 HOURS. FAMILY NOTIFIED AT BEDSIDE. UNIT RN NOTIFIED AND CONTACT NUMBER PROVIDED FOR REPORT. UNIT CM/SW AWARE.
--- NOTE | 2018-09-21 13:15 | NUR ---
DISCHARGE NOTE: SW reviewed chart and spoke with nursing and attending physician. Pt is medically stable for discharge back to [facility] today. senior production planner coordinated. Ambulance scheduled for 1400. Pt's family at bedside notified and agreeable with discharge plan. Chart copy ordered. Nursing provided with number to call report. No additional SW needs identified at this time, but is available to assist should needs arise.
[2018-09-21 17:10] LABS: M-SPIKE Not Observed g/dL (Not Observed)
--- NOTE | 2018-09-21 18:20 | NUR ---
Assumed care of PT at 0700. Patient was discharged back to [facility] this afternoon. Prior to discharge vitals were stable. Patient was alert and orientated with son at bedside helping with translation, when needed. Vent settings at [place] were: TV 500, FiO2 30%, Rate 12, and Peep of 8. Patient required suction and was able to assist with own oral secretions as needed. Frequent turns and barrier cream applied. Skin remained intact. Patient continued to progress toward POC goals.
--- NOTE | 2018-09-22 11:39 | D ---
[facility] [place] [address] [place] [address] DISCHARGE SUMMARY Name: LUIS KINSEY Room #: 352-P [facility] IN M.R.#: [id number] Admission: 09/18/18 ������������������ Attend Phys: Ladarius Fajardo MD Discharge: 09/21/18 ������������������ Date of : 31 Report #: [id number] THIS REPORT FOR: //name// CC: Celio Fajardo DATE OF SERVICE: 09/21/2018 FINAL DIAGNOSES: 1. Right lower lobe mucus plug. 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 5. Hypertension. 6. Diabetes type 2. HOSPITAL COURSE: The patient was admitted from the half-way for consideration of neurologic assessment of his chronic Guillain-[place] syndrome. He has been unable to be weaned from the ventilator after multiple attempts over the last 2 years. He was assessed by Dr. Sagastume. No further plans, treatment or workup were indicated. This is a chronic condition with no treatment available. Dr. Queen assessed him and performed bronchoscopy with suctioning of a mucus plug in the right lower lobe. Cultures were sent. Otherwise, he maintained his usual medications with no changes. PHYSICAL EXAMINATION: GENERAL: On the day of discharge, he was resting comfortably in bed with stable vital signs. He remained stable on the ventilator with good saturations. LUNGS: Clear. HEART: Regular. ABDOMEN: Soft, normoactive bowel sounds. EXTREMITIES: Showed no edema. I signed and prepared all his discharge orders electronically. DISPOSITION: Return to [facility] for chronic ventilator care, bed rest, n.p.o., tube feeding, water flushes, all current medications the same, sliding scale insulin. Follow up with Dr. Geha. DSOUZA in one week. ��������������������������������������������� <ELECTRONICALLY SIGNED> ���������������������������������������� By: Ladarius Fajardo MD ��������������������������������������������� 09/22/18 1139 [id number] Ladarius Fajardo MD /nt
== END 2018-09-21 14:21 | DRG 208 ==
LOC: 3W 16:49
PROVIDERS: Internal Medicine Pulmonary Disease; Psychiatry & Neurology Neurology; ADMIT Internal Medicine Geriatric Medicine
PROC: 5A1945Z Respiratory Ventilation, 24-96 Consecutive Hours (ICD-10-PCS; principal; 2018-09-18)
PROC: 0BC68ZZ Extirpation of Matter from Right Lower Lobe Bronchus, Via Natural or Artificial Opening Endoscopic (ICD-10-PCS; principal; 2018-09-18)
DX: J96.21 Acute and chronic respiratory failure with hypoxia (principal); G61.0 Guillain-Barre syndrome; T17.590A Other foreign object in bronchus causing asphyxiation, initial encounter; J96.22 Acute and chronic respiratory failure with hypercapnia; Z99.11 Dependence on respirator [ventilator] status; N18.9 Chronic kidney disease, unspecified; Z96.653 Presence of artificial knee joint, bilateral; E11.22 Type 2 diabetes mellitus with diabetic chronic kidney disease; E11.42 Type 2 diabetes mellitus with diabetic polyneuropathy; I12.9 Hypertensive chronic kidney disease with stage 1 through stage 4 chronic kidney disease, or unspecified chronic kidney disease; D63.8 Anemia in other chronic diseases classified elsewhere; Z93.0 Tracheostomy status; Z93.1 Gastrostomy status; X58.XXXA Exposure to other specified factors, initial encounter; Y93.89 Activity, other specified; Y92.89 Other specified places as the place of occurrence of the external cause; Y99.8 Other external cause status
CPT/HCPCS: 10879